=== PATIENT | female | born 1990 | race Two or more races ===

== ENCOUNTER → 2024-05-01 | Outpatient (CLI) | payer BC, SELFPAY ==
[2024-05-01 13:52] LABS: Prothrombin Time 10.8 Seconds (9.0-12.2)
[2024-05-01 14:04] LABS: Alanine Aminotransferase 52 U/L (10-49); Albumin, Serum 4.6 gm/dL (3.5-5.0); Alkaline Phosphatase 55 U/L (46-116); Aspartate Amino Transferase 58 U/L (0-34); Bilirubin,Direct 0.2 mg/dL (0.0-0.3); Bilirubin,Total 0.6 mg/dL (0.3-1.2); Total Protein 7.4 gm/dL (5.7-8.2)
[2024-05-01 14:06] LABS: Ferritin 62 ng/mL (7.3-270.7); Iron 116 mcg/dL (50-170); Percent Iron Saturation 33 % (20-55); Total Iron Binding Capacity 351 mcg/dL (250-425); Unsaturated Iron Binding 235 (225-295)
[2024-05-01 14:42] LABS: Hepatitis A Antibody IgM Non Reactive (Non React); Hepatitis B Core Antibody IgM Non Reactive (Non React); Hepatitis B Surface Antigen Non Reactive (Non React); Hepatitis C Antibody Non Reactive (Non React)
[2024-05-11 06:57] LABS: ANA Screen, IFA POSITIVE (NEGATIVE); Actin Antibody (IgG)* <20 U; Alpha-1-Antitrypsin* 132 mg/dL (83-199); Ceruloplasmin* 23 mg/dL (14-48); Copper* 105 mcg/dL (70-175); Mitochondrial Ab NEGATIVE (NEGATIVE)
== END | disposition home or self-care (01) ==
PROVIDERS: PCP Family Medicine; Referring Provider Specialist; Visit Provider Specialist
DX: R94.5 Abnormal results of liver function studies (principal)
CPT/HCPCS: 36415; 80074; 80076; 82103; 82105; 82390; 82525; 82728; 83540; 83550; 85610; 86015; 86038; 86255